=== PATIENT | female | born 1975 | race Caucasian/White ===

== ENCOUNTER 2016-12-07 21:57 | Emergency (ER) | payer SELFPAY ==
[~2016-12-07] VITALS: Ht 160 cm; Wt 127.0 kg
[~2016-12-07 21:57] MED LIST: ACHD5005 PO; CEPH500C PO; CPR500T PO; CYCL10TA9 PO; HYDR-2890 PO; HYDR-3456 PO; HYDR1CAP2 PO; HYDR1TAB PO; IBP800T PO; METF-380 PO; METH500T35 PO; NAPR-243 PO; NAPR550T PO; NITR-65 PO; NITR100C3 PO; NORT25CA PO; PHEN200T27 PO; PRM25T PO; PROM25SU10 PR; RNT150T PO; SULF1TAB38 PO; SUMA100T3 PO; TOPI25TA2 PO; TOPI50TA4 PO; TRAM-21 PO; TRM50T PO; [UNRECOGNIZED DRUG - REMARK]; estradol
--- OUTSIDE RECORDS SUMMARY | 2016-12-07 22:02 | XMS REPORT | Continuity of Care Document ---
Author Author [facility] Address Unknown Phone Unavailable Care Team Providers Care Hypo Dipper Name Role Phone Corrinaryann Marcelino PCP [phone] Source Comments Some departments are not documenting in the electronic medical record. If you do not see the information that you expected, contact Release of Information in the Health Information Management department at [phone] for further assistance in locating additional records.[facility] Active Allergies and Adverse Reactions Allergen Noted Date Severity Reactions Comments Morphine 12/13/2014 Medium RASH, NAUSEA AND VOMITING Penicillins Medium RASH, NAUSEA AND VOMITING Toradol 12/13/2014 Medium RASH, NAUSEA AND VOMITING Current Medications Prescription Sig. Disp. Refills Start End Date Status Date oxyCODONE SR (OXYCONTIN) Take 1 Tab by mouth every 30 Tab 0 01/15/20 Active 10 mg tablet 12 hours 15 oxyCODONE-acetaminophen Take 1-2 Tabs by mouth 50 Tab 0 01/15/20 Active (PERCOCET; ENDOCET; every 4 hours as needed 15 ROXICET) 5-325 mg tablet for Pain hyoscyamine (ANASPAZ; Place 1 Tab under tongue 30 Tab 0 01/15/20 Active NULEV; SYMAX FASTABS; every 4 hours as needed. 15 HYOMAX-FT; ED-SPAZ; OSCIMIN) 0.125 mg rapid dissolve tablet milk of magnesia (CONC) Take 10 mL by mouth twice 100 mL 2 01/15/20 Active 2,400 mg/10 mL oral daily. 15 suspension senna/docusate Take 2 Tabs by mouth 30 Tab 3 01/15/20 Active (SENOKOT-S) 8.6/50 mg twice daily. 15 tablet lidocaine (LIDODERM) 5 % Apply Q12 H on/ Q 12 H 30 Patch 1 01/15/20 Active topical patch off to affected area. 15 Active Problems Problem Noted Date Renal cell carcinoma (HCC) 12/13/2014 Overview: Final Diagnosis: A. Kidney, "right kidney and perirenal fat", nephrectomy: Clear cell renal cell carcinoma, Stanton grade 2. See checklist. Resolved Problems Problem Noted Date Resolved Date Kidney mass 01/12/2015 01/14/2015 Social History Tobacco Use Types Packs/Day Years Used Date Current Every Day Smoker Cigarettes 0.25 15 Tobacco Cessation: Ready to Quit: No Comments: Alcohol Use Drinks/Week oz/Week Comments No Last Filed Vital Signs Vital Sign Reading Time Taken Blood Pressure 120/56 01/14/2015 6:59 PM CDT Pulse 84 01/14/2015 6:59 PM CDT Temperature 36.9 C (98.5 F) 01/14/2015 6:59 PM CDT Respiratory Rate - - Height 1.6 m (5' 2.99") 01/12/2015 6:10 AM CDT Weight 85.2 kg (187 lb 13.3 oz) 01/12/2015 6:10 AM CDT Body Mass Index 33.28 01/12/2015 6:10 AM CDT Oxygen Saturation 93% 01/14/2015 6:59 PM CDT Plan of Care Health Maintenance Due Date Last Done Comments Physical (Comprehensive) 1983 Exam Pertussis Vaccine 1987 Tetanus Vaccine 1993 Cervical Cancer Screening 1997 Influenza Vaccine 05/24/2016 Results from Last 3 Months Not on file
[2016-12-07] MEDS ORDERED: NS IV 1000 ML 1,000 ML IV ONE (22:22)
[2016-12-07 22:29] LABS: BILIRUBIN,URINE NEGATIVE (NEGATIVE); KETONES,URINE NEGATIVE (NEGATIVE); LEUKOCYTE ESTERASE ,URINE 1+ (NEGATIVE); NITRITE,URINE NEGATIVE (NEGATIVE); PH,URINE 6.5 (5-9); PROTEIN,URINE NEGATIVE (NEGATIVE); UROBILINOGEN,URINE 1 MG/DL (NORMAL)
[2016-12-07 22:42] LABS: BASOPHILS % (AUTO) 0 % (0-10); EOSINOPHILS # (AUTO) 0.4 10^3/uL (0.0-0.3); EOSINOPHILS % (AUTO) 3 % (0-10); LYMPHOCYTES # (AUTO) 2.8 X 10^3 (1.0-4.0); LYMPHOCYTES % (AUTO) 25 % (12-44); MEAN CORPUSCULAR HEMOGLOBIN 30 PG (25-34); MEAN CORPUSCULAR HGB CONC 33 G/DL (32-36); MEAN CORPUSCULAR VOLUME 91 FL (80-99); MEAN PLATELET VOLUME 9.5 FL (7.4-10.4); MONOCYTES # (AUTO) 0.9 X 10^3 (0.0-1.0); MONOCYTES % (AUTO) 8 % (0-12); NEUTROPHILS # (AUTO) 7.2 X 10^3 (1.8-7.8); NEUTROPHILS % (AUTO) 64 % (42-75); PLATELET COUNT 241 10^3/uL (130-400); RED BLOOD COUNT 4.61 10^6/uL (4.35-5.85); RED CELL DISTRIBUTION WIDTH 12.7 % (10.0-14.5); WHITE BLOOD COUNT 11.3 10^3/uL (4.3-11.0)
--- NOTE | 2016-12-07 22:42 | ED Back Pain ---
General Stated Complaint: L SIDE PAIN Nursing Triage Note: left flank pain x1 week. hx of kidney stones Nursing Sepsis Screen: No Definite Risk Source of Information: Patient History of Present Illness Time Seen by Provider: 22:20 Initial Comments C/O LEFT FLANK PAIN OFF AND ON X 1 WEEK HAS BEEN SEVERE AND CONSTANT TONIGHT NOTHING WORSENS OR IMPROVES PAIN HAS TAKEN NOTHING FOR PAIN AT ANY TIME + NAUSEA, NO VOMITING NO DIARRHEA NO URINARY SYMPTOMS NO BOWEL DIFFICULTY NO FEVER PT STATES SHE HAS HAD MULTIPLE KIDNEY STONES AND THIS IS THE SAME--PT HAS BEEN TO ER MULTIPLE TIMES FOR SAME COMPLAINT, AND IT IS VERY RARELY THAT THERE HAS BEEN A KIDNEY STONE FOUND ON MULTIPLE CT'S--HAS HAD OVER 20 CT'S DONE HERE, WELL PLAIN XRAYS AND ULTRASOUNDS. PT HAS ALSO HAD A RIGHT NEPHRECTOMY 1 1/2 YEARS AGO FOR RENAL CANCER. Other Comments PCP: DR. PEREZ Allergies and Home Medications Allergies Coded Allergies: Penicillins (Verified Allergy, Unknown, 12/05/05) ketorolac (Verified Allergy, Unknown, 12/05/05) morphine (Verified Allergy, Unknown, 12/05/05) aspirin (Unverified Adverse Reaction, Mild, NAUSEA/VOMITING, 04/20/10) Home Medications Methocarbamol 500 Mg Tablet #15 500 MG PO TID Prescribed by: EFREN SMITH on 12/07/162327 Methylprednisolone 4 Mg Tab.ds.pk #1 4 MG PO UD Prescribed by: EFREN SMITH on 12/07/162327 Tramadol HCl 50 Mg Tablet #20 50 MG PO Q4H Prescribed by: EFREN SMITH on 12/07/162327 Constitutional: no symptoms reported Respiratory: no symptoms reported Cardiovascular: no symptoms reported Gastrointestinal: see HPINo constipation, No diarrhea, nauseaNo vomiting, other (LEFT FLANK PAIN ) Genitourinary: no symptoms reportedNo decreased output, No dysuria, No frequency, No hematuria, No hesitancy : No Control/STD Prophylaxis: Other (HYST) Musculoskeletal: see HPI back pain Skin: no symptoms reported Psychiatric/Neurological: No Symptoms Reported Past Sxrpqur-Fufjii-Heeawm Hx Patient Social History Alcohol Use: Occasionally Uses Recreational Drug Use: No 2nd Hand Smoke Exposure: Yes Recent Foreign Travel: No Contact w/Someone Who Travel: No Recent Infectious Disease Expo: No Recent Hopitalizations: No Immunizations Up To Date Tetanus Booster (TDap): Unknown Date of Pneumonia Vaccine: Aug 01, 2015 Date of Influenza Vaccine: Aug 01, 2014 Seasonal Allergies Seasonal Allergies: No Surgeries HX Surgeries: Yes (MULTIPLE LITHOTRIPSISES AND KIDNEY STONE REMOVALS; RIGHT NEPHRECTOMY 2013; BREAST REDUCTION 2002; HYST/ BSO 2005; SCREWS AND METAL PLATE IN LEFT LEG/ANKLE) Surgeries: Breast, Hysterectomy, Oophorectomy, Orthopedic, Renal Respiratory Hx Respiratory Disorders: No Cardiovascular Hx Cardiac Disorders: No Neurological Hx Neurological Disorders: No Reproductive System Hx Reproductive Disorders: Yes (OVARIAN CANCER) Sexually Transmitted Disease: No HIV/AIDS: No 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 SEES ONCOLOGIST EVERY 6 MONTHS IN ) Cancer: Skin, Breast, Cervical, Ovarian, Kidney Psychosocial Hx Psychiatric Problems: No Integumentary HX Skin/Integumentary Disorder: No Blood Transfusions Hx Blood Disorders: No Family Medical History Significant Family History: No Pertinent Family Hx Family Medial History: Diabetes mellitus 19 MOTHER PULMONARY VALVE STENOSIS 19 MOTHER Physical Exam Vital Signs Vital Sign - Last 12Hours 12/07/16 22:19 Temp 97.3 Pulse 92 Resp 20 B/P 142/83 Pulse Ox 98 O2 Delivery Room Air Capillary Refill : Less Than 3 Seconds General Appearance: Obese Other (ROCKING BACK AND FORTH, HOLDING LEFT FLANK) Neck: Normal Inspection Cardiovascular: Regular Rate, Rhythm Normal Peripheral Pulses Respiratory: Normal Breath Sounds No Accessory Muscle Use No Respiratory Distress Gastrointestinal: Non Tender Soft Back: No Vertebral Tenderness CVA Tenderness (L) Extremity: Normal Inspection Normal Range of Motion No Pedal Edema Neurologic/Psychiatric: Alert Oriented x3 No Motor/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 Norm as Tested Skin: Normal Color Warm/DryNo Rash Progress/Results/Core Measures Results/Orders Lab Results Laboratory Tests Test 12/07/16 22:21 12/07/16 22:35 Range/Units Ur Tricyclic Antidepressants Screen NEGATIVE NEGATIVE Urine Amphetamines Screen NEGATIVE NEGATIVE Urine Bacteria TRACE /HPF Urine Barbiturates Screen NEGATIVE NEGATIVE Urine Benzodiazepines Screen NEGATIVE NEGATIVE Urine Bilirubin NEGATIVE NEGATIVE Urine Cannabinoids Screen NEGATIVE NEGATIVE Urine Casts NONE /LPF Urine Clarity CLEAR Urine Cocaine Screen NEGATIVE NEGATIVE Urine Color YELLOW Urine Crystals NONE /LPF Urine Culture Indicated NO Urine Glucose (UA) NEGATIVE NEGATIVE Urine Ketones NEGATIVE NEGATIVE Urine Leukocyte Esterase 1+ H NEGATIVE Urine Methadone Screen NEGATIVE NEGATIVE Urine Methamphetamines Screen NEGATIVE NEGATIVE Urine Mucus NEGATIVE /LPF Urine Nitrite NEGATIVE NEGATIVE Urine Opiates Screen NEGATIVE NEGATIVE Urine Oxycodone Screen NEGATIVE NEGATIVE Urine Phencyclidine Screen NEGATIVE NEGATIVE Urine Propoxyphene Screen NEGATIVE NEGATIVE Urine Protein NEGATIVE NEGATIVE Urine RBC NONE /HPF Urine RBC (Auto) NEGATIVE NEGATIVE Urine Specific [place] 1.020 1.016-1.022 Urine Squamous Epithelial Cells 10-25 H /HPF Urine Urobilinogen 1 NORMAL MG/DL Urine WBC 0-2 /HPF Urine pH 6.5 5-9 Alanine Aminotransferase (ALT/SGPT) 17 0-55 U/L Albumin 3.8 3.2-4.5 G/DL Alkaline Phosphatase 70 40-136 U/L Amylase Level 63 25-125 U/L Anion Gap 9 5-14 MMOL/L Aspartate Amino Transf (AST/SGOT) 16 5-34 U/L BUN/Creatinine Ratio 18 Basophils # (Auto) 0.0 0.0-0.1 10^3/uL Basophils (%) (Auto) 0 0-10 % Blood Urea Nitrogen 19 H 7-18 MG/DL Calcium Level 9.0 8.5-10.1 MG/DL Carbon Dioxide Level 25 21-32 MMOL/L Chloride Level 108 H 98-107 MMOL/L Creatinine 1.05 0.60-1.30 MG/DL Eosinophils # (Auto) 0.4 H 0.0-0.3 10^3/uL Eosinophils (%) (Auto) 3 0-10 % Estimat Glomerular Filtration Rate 58 Glucose Level 127 H 70-105 MG/DL Hematocrit 42 35-52 % Hemoglobin 13.9 11.5-16.0 G/DL Lipase 61 8-78 U/L Lymphocytes # (Auto) 2.8 1.0-4.0 X 10^3 Lymphocytes (%) (Auto) 25 12-44 % Mean Corpuscular Hemoglobin 30 25-34 PG Mean Corpuscular Hemoglobin Concent 33 32-36 G/DL Mean Corpuscular Volume 91 80-99 FL Mean Platelet Volume 9.5 7.4-10.4 FL Monocytes # (Auto) 0.9 0.0-1.0 X 10^3 Monocytes (%) (Auto) 8 0-12 % Neutrophils # (Auto) 7.2 1.8-7.8 X 10^3 Neutrophils (%) (Auto) 64 42-75 % Platelet Count 241 130-400 10^3/uL Potassium Level 3.9 3.6-5.0 MMOL/L Red Blood Count 4.61 4.35-5.85 10^6/uL Red Cell Distribution Width 12.7 10.0-14.5 % Sodium Level 142 135-145 MMOL/L Total Bilirubin 0.3 0.1-1.0 MG/DL Total Protein 6.7 6.4-8.2 G/DL White Blood Count 11.3 H 4.3-11.0 10^3/uL My Orders Orders-EFREN SMITH DO Ct Abd/Pelvis Wo(Kidney Stone) (12/07/16 22:22) Amylase (12/07/16 22:22) Cbc With Automated Diff (12/07/16 22:22) Comprehensive Metabolic Panel (12/07/16 22:22) Lipase (12/07/16 22:22) Ua Culture If Indicated (12/07/16 22:22) Acute Abd Series (12/07/16 22:22) Saline Lock/Iv-Start (12/07/16 22:22) Ns Iv 1000 Ml (Sodium Chloride 0.9%) (12/07/16 22:22) Urine Bedside (12/07/16 22:22) Drug Screen Stat (Urine) (12/07/16 22:31) Orphenadrine Injection (Norflex Injectio (12/07/16 23:30) Diphenhydramine Injection (Benadryl Inje (12/07/16 23:30) Rx-Tramadol Hcl (Rx-Ultram) (12/07/16 23:24) Methylprednisolone Sod Succ (Solu-Medrol (12/07/16 23:30) Medications Given in ED Current Medications Medications Dose Ordered Sig/Stacey Route Start Time Stop Time Status Last Admin Dose Admin Diphenhydramine HCl 50 mg ONCE ONCE IVP 3/17/17 23:30 12/07/16 23:31 DC 12/07/16 23:32 50 MG Methylprednisolone Sodium Succinate 125 mg ONCE ONCE IVP 12/07/16 23:30 12/07/16 23:31 DC 12/07/16 23:32 125 MG Orphenadrine Citrate 60 mg ONCE ONCE IV 12/07/16 23:30 12/07/16 23:31 DC 12/07/16 23:32 60 MG Sodium Chloride 1,000 ml @ 0 mls/hr Q0M ONCE IV 12/07/16 22:22 12/07/16 22:23 DC 12/07/16 22:56 0 MLS/HR Vital Signs/I&O Vital Sign - Last 12Hours 12/07/16 12/07/16 22:19 23:44 Temp 97.3 Pulse 92 70 Resp 20 18 B/P 142/83 Pulse Ox 98 93 O2 Delivery Room Air Blood Pressure Mean: 102 Point of Care Testing Urine -Bedside: Negative Progress Note : Progress Note SYMPTOMS EASED AT DISMISSAL Diagnostic Imaging Comments ACUTE ABDOMEN XRAYS--NO ACUTE PROCESS, PENDING RADIOLOGIST REVIEW CT ABDOMEN/PELVIS--NO ACUTE PROCESS, NO UROLITHIASIS OR HYDRONEPHROSIS, SMALL FATTY UMBILICAL HERNIA, RIGHT NEPHRECTOMY AND HYSTERECTOMY--PER [facility] VIA FAX @ [phone] Reviewed: Reviewed by Me Departure Impression Impression: Primary Impression: Left flank pain Disposition: 01 HOME, SELF-CARE Condition: Stable Departure-Patient Inst. Referrals: CARLA PEREZ DO (PCP/Family) Primary Care Physician Patient Instructions: Low Back Pain (DC) Add. Discharge Instructions: MOIST HEAT TO BACK AT 20 MINUTE INTERVALS ACTIVITIES TOLERATED FOLLOW UP WITH YOUR DR ON SATURDAY IF NO BETTER All discharge instructions reviewed with patient and/or family. Voiced understanding. Scripts Tramadol HCl (Ultram)50 Mg [id number] Mg PO Q4H #20 TAB Prov:EFREN SMITH DO 12/07/16 Methocarbamol (Robaxin)500 Mg [id number] Mg PO TID #15 TAB Prov:EFREN SMITH DO 12/07/16 Methylprednisolone (Medrol)4 Mg Tab.ds.pk4 Mg PO UD #1 PKG Prov:EFREN SMITH DO 12/07/16 EFREN SMITH DO Dec 07, 2016 22:42
[2016-12-07 22:47] LABS: WBC,URINE 0-2 /HPF
[2016-12-07 23:07] LABS: ALBUMIN 3.8 G/DL (3.2-4.5); BILIRUBIN,TOTAL 0.3 MG/DL (0.1-1.0); CREATININE SERUM 1.05 MG/DL (0.60-1.30); POTASSIUM 3.9 MMOL/L (3.6-5.0); TOTAL PROTEIN 6.7 G/DL (6.4-8.2)
[2016-12-07] MEDS ORDERED: RX-TRAMADOL 50 MG (ULTRAM) TAB PPK#4 PO STA (23:24)
[2016-12-07] MEDS ORDERED: METH4TAB PO (23:28)
[2016-12-07] MEDS ORDERED: TRAM-42 PO (23:28)
[2016-12-07] MEDS ORDERED: METH500T PO (23:28)
[2016-12-07] MEDS ORDERED: diphenhydrAMINE 50 MG/ML INJ (BENADRYL) IVP ONE (23:30)
[2016-12-07] MEDS ORDERED: methylPREDNISolone 125 MG (Solu-MEDROL) VIAL IVP ONE (23:30)
[2016-12-07] MEDS ORDERED: ORPHENADRINE 60 MG/2 ML (NORFLEX) AMP IV ONE (23:30)
[2016-12-07 23:44] VITALS: BP 140/76
--- NOTE | 2016-12-08 06:56 | Diagnostic Imaging Report ---
PROCEDURE: CT urinary tract, rule out kidney stone. TECHNIQUE: Multiple contiguous axial images were obtained through the abdomen and pelvis without the use of intravenous contrast. INDICATION: Left flank pain. Comparison is made with prior examination from 11/30/14. FINDINGS: The heart size is normal. The lung bases are clear. The liver is normal in size without focal lesions. The gallbladder is contracted. There is no biliary ductal dilatation. The spleen is unremarkable. The pancreas and adrenal glands are unremarkable. There has been a right nephrectomy. There are multiple parapelvic cysts in the left kidney. There is, however, no evidence of urolithiasis or obstructive uropathy. The abdominal aorta is nonaneurysmal. The bowel gas pattern is nonspecific. There is no free air. The appendix is normal. There is no ascites. Uterus is surgically absent. There is a small periumbilical hernia. IMPRESSION: Previous right nephrectomy. Left renal parapelvic cysts without evidence of urolithiasis or obstructive uropathy. No other acute abnormality in the abdomen or pelvis. Dictated by: Dictated on workstation # [id number]
--- NOTE | 2016-12-08 08:20 | Diagnostic Imaging Report ---
INDICATION: Abdominal pain. FINDINGS: The heart size is normal. The lungs are clear. There is no pleural effusion or pneumothorax. The bowel gas pattern is nonspecific. There is no free air. There are no abnormal abdominal calcifications. IMPRESSION: No acute cardiopulmonary abnormality. Nonspecific bowel gas pattern. Dictated by: Dictated on workstation # [id number]
== END 2016-12-07 23:44 | disposition home or self-care (01) ==
LOC: EDUNIT# 21:57 → ER 21:58
DX: K42.9 Umbilical hernia without obstruction or gangrene (principal); N28.1 Cyst of kidney, acquired; E11.9 Type 2 diabetes mellitus without complications; E66.9 Obesity, unspecified; Z90.5 Acquired absence of kidney; Z90.710 Acquired absence of both cervix and uterus; Z85.528 Personal history of other malignant neoplasm of kidney
CPT/HCPCS: 36415; 74022; 74176; 80053; 80306; 81000; 82150; 83690; 84703; 85025; 96361; 96374; 96375

== ENCOUNTER 2022-11-07 00:43 | Emergency (ER) | payer BC ==
[~2022-11-07] VITALS: Ht 145 cm; Wt 63.0 kg
[~2022-11-07 00:43] MED LIST changes: +METH4TAB PO; +METH500T PO; +TRAM-42 PO
[2022-11-07 01:10] VITALS: BP 155/95
[2022-11-07 03:44] LABS: BASOPHILS # (AUTO) 0.1 10^3/uL (0.0-0.1); BASOPHILS % (AUTO) 1 % (0-10); EOSINOPHILS # (AUTO) 0.4 10^3/uL (0.0-0.3); EOSINOPHILS % (AUTO) 4 % (0-10); HEMATOCRIT 41 % (35-52); HEMOGLOBIN 13.3 g/dL (11.5-16.0); LYMPHOCYTES # (AUTO) 2.6 10^3/uL (1.0-4.0); LYMPHOCYTES % (AUTO) 29 % (12-44); MEAN CORPUSCULAR HEMOGLOBIN 31 pg (25-34); MEAN CORPUSCULAR HGB CONC 33 g/dL (32-36); MEAN CORPUSCULAR VOLUME 96 fL (80-99); MEAN PLATELET VOLUME 9.8 fL (9.0-12.2); MONOCYTES # (AUTO) 0.7 10^3/uL (0.0-1.0); MONOCYTES % (AUTO) 7 % (0-12); NEUTROPHILS # (AUTO) 5.1 10^3/uL (1.8-7.8); NEUTROPHILS % (AUTO) 58 % (42-75); PLATELET COUNT 258 10^3/uL (130-400); WHITE BLOOD COUNT 8.7 10^3/uL (4.3-11.0)
[2022-11-07 03:48] LABS: BACTERIA,URINE TRACE /HPF; BILIRUBIN,URINE NEGATIVE (NEGATIVE); CLARITY,URINE CLEAR; COLOR,URINE YELLOW; GLUCOSE, URINE (UA) NEGATIVE (NEGATIVE); KETONES,URINE TRACE (NEGATIVE); LEUKOCYTE ESTERASE ,URINE 1+ (NEGATIVE); NITRITE,URINE NEGATIVE (NEGATIVE); PROTEIN,URINE NEGATIVE (NEGATIVE); SQUAMOUS EPITHELIAL CELL,UR 0-2 /HPF; WBC,URINE 0-2 /HPF
[2022-11-07 03:49] LABS: CALCIUM OXALATE CRYSTALS,UR MODERATE /LPF
[2022-11-07 03:50] LABS: ALBUMIN 4.2 GM/DL (3.2-4.5); BILIRUBIN,TOTAL 0.5 MG/DL (0.1-1.0); CREATININE SERUM 0.8 MG/DL (0.60-1.30); POTASSIUM 3.6 MMOL/L (3.6-5.0)
[2022-11-07] MEDS ORDERED: NS IV 500 ML 500 ML IV ONE (04:30)
--- NOTE | 2022-11-07 04:36 | ED GU-Female ---
General Chief Complaint: - Reproductive Stated Complaint: LEFT SIDE OF BACK PAIN Source: patient Exam Limitations: no limitations History of Present Illness Date Seen by Provider: Nov 07, 2022 Time Seen by Provider: 01:10 Initial Comments This 47-year-old woman presents to the emergency room with pain in the left lower back and flank that radiates around to the left groin. Symptoms started about midday yesterday and have escalated through the night. She denies any urinary changes. She has nausea without vomiting. No diarrhea or constipation. No hematuria. She has history of ureteral stones and states this feels similar. She has history of right nephrectomy secondary to cancer. She lives in [place] and is here visiting. Her urologist and primary care are in [place] at affiliated with [facility]. Allergies and Home Medications Allergies Coded Allergies: Penicillins (Verified Allergy, Unknown, 12/05/05) ketorolac (Verified Allergy, Unknown, 12/05/05) morphine (Verified Allergy, Unknown, 12/05/05) aspirin (Unverified Adverse Reaction, Mild, NAUSEA/VOMITING, 04/20/10) Patient Home Medication List Home Medication List Reviewed: Yes Methocarbamol (Robaxin) 500 Mg Tablet, 500 MG PO TID Prescribed by: EFREN SMITH on 12/07/162327 Methylprednisolone (Medrol) 4 Mg Tab.ds.pk, 4 MG PO UD Prescribed by: EFREN SMITH on 12/07/162327 Tramadol HCl (Ultram) 50 Mg Tablet, 50 MG PO Q4H Prescribed by: EFREN SMITH on 12/07/162327 Review of Systems Review of Systems Constitutional: no symptoms reported EENTM: no symptoms reported Respiratory: no symptoms reported Cardiovascular: no symptoms reported Gastrointestinal: see HPI Genitourinary: see HPI : No Musculoskeletal: no symptoms reported Skin: no symptoms reported Psychiatric/Neurological: No Symptoms Reported Endocrine: No Symptoms Reported Hematologic/Lymphatic: No Symptoms Reported Past Gefrnwj-Klmhnw-Gjxrgi Hx Patient Social History Tobacco Use?: No Use of E-Cig and/or Vaping dev: No Substance use?: No Alcohol Use?: Yes Alcohol Frequency: Once in a while Immunizations Up To Date Tetanus Booster (TDap): Unknown Seasonal Allergies Seasonal Allergies: No Past Medical History Surgeries: Yes Breast, Hysterectomy, Oophorectomy, Orthopedic, Renal (Right nephrectomy for cancer treatment) Respiratory: No Cardiac: No Neurological: No : No Reproductive Disorders: Yes (OVARIAN CANCER) Female 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 0.0oz. 127.038772pw; BMI Method:Stated General Appearance: WD/WN, no apparent distress HEENT: normal ENT inspection Neck: normal inspection Cardiovascular: regular rate, rhythm, no edema, no murmur Respiratory: lungs clear, normal breath sounds, no respiratory distress, no accessory muscle use Gastrointestinal: soft; No distended; tenderness (mild, left side) Extremities: normal inspection, no pedal edema Neurologic/Psychiatric: alert, normal mood/affect, oriented x 3 Skin: normal color, warm/dry Progress/Results/Core Measures Suspected Sepsis SIRS Temperature: Pulse: Respiratory Rate: Laboratory Tests 11/07/22 01:15: White Blood Count 8.7 Blood Pressure / Mean: Laboratory Tests 11/07/22 01:15: Creatinine 0.80, Platelet Count 258, Total Bilirubin 0.5 Results/Orders Lab Results Laboratory Tests Test 11/07/22 01:15 Range/Units White Blood Count 8.7 4.3-11.0 10^3/uL Red Blood Count 4.27 3.80-5.11 10^6/uL Hemoglobin 13.3 11.5-16.0 g/dL Hematocrit 41 35-52 % Mean Corpuscular Volume 96 80-99 fL Mean Corpuscular Hemoglobin 31 25-34 pg Mean Corpuscular Hemoglobin Concent 33 32-36 g/dL Red Cell Distribution Width 12.3 10.0-14.5 % Platelet Count 258 130-400 10^3/uL Mean Platelet Volume 9.8 9.0-12.2 fL Immature Granulocyte % (Auto) 0 % Neutrophils (%) (Auto) 58 42-75 % Lymphocytes (%) (Auto) 29 12-44 % Monocytes (%) (Auto) 7 0-12 % Eosinophils (%) (Auto) 4 0-10 % Basophils (%) (Auto) 1 0-10 % Neutrophils # (Auto) 5.1 1.8-7.8 10^3/uL Lymphocytes # (Auto) 2.6 1.0-4.0 10^3/uL Monocytes # (Auto) 0.7 0.0-1.0 10^3/uL Eosinophils # (Auto) 0.4 H 0.0-0.3 10^3/uL Basophils # (Auto) 0.1 0.0-0.1 10^3/uL Immature Granulocyte # (Auto) 0.0 0.0-0.1 10^3/uL Percent Immature Platelet Fraction 2.7 0.0-7.6 % Urine Color YELLOW Urine Clarity CLEAR Urine pH 6.0 5-9 Urine Specific [place] 1.025 H 1.016-1.022 Urine Protein NEGATIVE NEGATIVE Urine Glucose (UA) NEGATIVE NEGATIVE Urine Ketones TRACE H NEGATIVE Urine Nitrite NEGATIVE NEGATIVE Urine Bilirubin NEGATIVE NEGATIVE Urine Urobilinogen 0.2 < = 1.0 MG/DL Urine Leukocyte Esterase 1+ H NEGATIVE Urine RBC (Auto) NEGATIVE NEGATIVE Urine RBC NONE /HPF Urine WBC 0-2 /HPF Urine Squamous Epithelial Cells 0-2 /HPF Urine Crystals PRESENT H /LPF Urine Calcium Oxalate Crystals MODERATE H /LPF Urine Bacteria TRACE /HPF Urine Casts NONE /LPF Urine Mucus NEGATIVE /LPF Urine Culture Indicated NO Sodium Level 141 135-145 MMOL/L Potassium Level 3.6 3.6-5.0 MMOL/L Chloride Level 108 H 98-107 MMOL/L Carbon Dioxide Level 20 L 21-32 MMOL/L Anion Gap 13 5-14 MMOL/L Blood Urea Nitrogen 15 7-18 MG/DL Creatinine 0.80 0.60-1.30 MG/DL Estimat Glomerular Filtration Rate 92 BUN/Creatinine Ratio 19 Glucose Level 107 H 70-105 MG/DL Calcium Level 9.0 8.5-10.1 MG/DL Corrected Calcium 8.8 8.5-10.1 MG/DL Total Bilirubin 0.5 0.1-1.0 MG/DL Aspartate Amino Transf (AST/SGOT) 15 5-34 U/L Alanine Aminotransferase (ALT/SGPT) 19 0-55 U/L Alkaline Phosphatase 108 40-136 U/L Total Protein 7.0 6.4-8.2 GM/DL Albumin 4.2 3.2-4.5 GM/DL My Orders Orders - BEN BARFIELD MD Cbc With Automated Diff (11/07/22 01:15) Comprehensive Metabolic Panel (11/07/22 01:15) Urinalysis (11/07/22 01:15) Ns Iv 500 Ml (Sodium Chloride 0.9%) (11/07/22 04:30) Ct Abd/Pelvis Wo(Kidney Stone) (11/07/22 04:20) Vital Signs/I&O 11/07/22 01:10 Temp 35.6 Pulse 81 Resp 20 B/P (MAP) 155/95 (115) Capillary Refill : Progress Note : Progress Note Patient was treated with IVF and Fentanyl. Labs including CBC, CMP, and urinalysis were unremarkable. Patient required a second dose of fentanyl. IV fluids were infused. After reviewing radiologist interpretations, I advised patient to proceed with repeat CT imaging with oral contrast and with a modified dose of IV contrast. Patient declined and requested to leave AMA to follow-up with her provider in [place]. See discharge instructions. Symptoms were controlled at the time of departure. Diagnostic Imaging Diagonstic Imaging: CT Plain Films/CT/US/NM/MRI: abdomen, pelvis Comments CT abdomen and pelvis was reviewed by me and [facility] report reviewed. [facility] report suggested possible left hydronephrosis without evidence of obstructing ureteral stone and a possible small bowel obstruction. Based on radiologist's recommendations I advised the patient that we should obtain a CT with oral contrast and adjusted IV contrast to more accurately provide a diagnosis. In-house radiologist's interpretation was later provided as below: NAME: ELENI ROBLES [facility] REC#: [id number] PT STATUS: DEP ER : 1975 PHYSICIAN: BEN BARFIELD MD ADMIT DATE: 11/07/22/ER Draft Date of Exam:11/07/22 CT ABD/PELVIS WO(KIDNEY STONE) PROCEDURE: CT urinary tract, rule out kidney stone. TECHNIQUE: Multiple contiguous axial images were obtained through the abdomen and pelvis without the use of intravenous contrast. Auto Exposure Controls were utilized during the CT exam to meet ALARA standards for radiation dose reduction. INDICATION: Left-sided abdominal pain COMPARISON: 12/07/2016 FINDINGS: The visualized lung bases are clear. Postsurgical changes of a gastric bypass are identified. The unenhanced liver and spleen are unremarkable. Layering hyperdensities are noted within the gallbladder without significant inflammatory stranding about the gallbladder. The right kidney is again not visualized. Extensive hypodensities are identified within the central aspect of the left kidney, which have significantly increased and developed since the prior examination. No left hydroureter. 0.6 cm calculus within the inferior pole of the left kidney. No left-sided ureterolithiasis. No aneurysmal dilatation of the abdominal aorta. The appendix is unremarkable. The urinary bladder is grossly unremarkable. The uterus is not visualized, likely surgically absent. No abnormal adnexal mass lesion. No bowel obstruction or pneumatosis. No significant adenopathy, free air, or free fluid in abdomen or pelvis. Mild scattered osseous degenerative changes without acute osseous abnormality. IMPRESSION: Multiple new central left renal hypodensities, favored related to hydronephrosis superimposed upon peripelvic cysts. No definite obstructing calculus is seen. CT urogram could be obtained for further evaluation to evaluate for underlying small obstructing mass lesion. Right nephrectomy. Postsurgical changes of a gastric bypass. Sludge and/or stones within the gallbladder. Additional findings as above. Agree with preliminary interpretation. Dictated on workstation # [id number] Dict: 11/07/22 0630 Trans: 11/07/22 0643 [facility] [id number] Interpreted by: ALFREDA KELLY MD Departure Impression Primary Impression: Left sided abdominal pain Additional Impressions: Nausea Abnormal CT of the abdomen Disposition: 07 AGAINST MEDICAL ADVICE Condition: Against Medical Advice Departure-Patient Inst. Decision time for Depature: 04:32 Referrals: CARLA PEREZ DO (PCP/Family) Primary Care Physician Patient Instructions: Abdominal Pain, Adult ED, Small Bowel Obstruction Add. Discharge Instructions: CT imaging and labs in the emergency room did not clearly identify a cause for your pain. There was concern for a possible small bowel obstruction and/or obstruction of your left ureter. Further studies were recommended by the radiologist including a CT scan with oral contrast to rule out small bowel obstruction and a CT urogram to evaluate in the urine flow through the left kidney and ureter. Because you have declined these studies in favor of seeking further care at an outside facility, you have been asked to sign AMA release forms. Please contact your neurologist immediately this morning for further direction. Return to care if you have worsening symptoms or if you change your mind about proceeding with the recommended studies. Please present your preliminary CT report and the disc of images to your primary care provider, urologist, and oncologist. All discharge instructions reviewed with patient and/or family. Voiced understanding. BEN BARFIELD MD Nov 07, 2022 04:36
--- NOTE | 2022-11-07 06:44 | Diagnostic Imaging Report ---
PROCEDURE: CT urinary tract, rule out kidney stone. TECHNIQUE: Multiple contiguous axial images were obtained through the abdomen and pelvis without the use of intravenous contrast. Auto Exposure Controls were utilized during the CT exam to meet ALARA standards for radiation dose reduction. INDICATION: Left-sided abdominal pain COMPARISON: 12/07/2016 FINDINGS: The visualized lung bases are clear. Postsurgical changes of a gastric bypass are identified. The unenhanced liver and spleen are unremarkable. Layering hyperdensities are noted within the gallbladder without significant inflammatory stranding about the gallbladder. The right kidney is again not visualized. Extensive hypodensities are identified within the central aspect of the left kidney, which have significantly increased and developed since the prior examination. No left hydroureter. 0.6 cm calculus within the inferior pole of the left kidney. No left-sided ureterolithiasis. No aneurysmal dilatation of the abdominal aorta. The appendix is unremarkable. The urinary bladder is grossly unremarkable. The uterus is not visualized, likely surgically absent. No abnormal adnexal mass lesion. No bowel obstruction or pneumatosis. No significant adenopathy, free air, or free fluid in abdomen or pelvis. Mild scattered osseous degenerative changes without acute osseous abnormality. IMPRESSION: Multiple new central left renal hypodensities, favored related to hydronephrosis superimposed upon peripelvic cysts. No definite obstructing calculus is seen. CT urogram could be obtained for further evaluation to evaluate for underlying small obstructing mass lesion. Right nephrectomy. Postsurgical changes of a gastric bypass. Sludge and/or stones within the gallbladder. Additional findings as above. Agree with preliminary interpretation. Dictated by: Dictated on workstation # [id number]
== END 2022-11-07 05:00 | disposition left against medical advice (07) ==
LOC: EDUNIT# 00:43 → ER 00:45
DX: R10.9 Unspecified abdominal pain (principal); R11.0 Nausea; R93.5 Abnormal findings on diagnostic imaging of other abdominal regions, including retroperitoneum; Z87.442 Personal history of urinary calculi; Z88.5 Allergy status to narcotic agent
CPT/HCPCS: 36415; 74176; 80053; 81000; 85025